=== PATIENT | female | born 1960 | race Caucasian/White ===

== ENCOUNTER 2023-02-18 08:10 | Emergency (ER) | payer SELFPAY ==
[~2023-02-18] VITALS: Ht 170.2 cm; Wt 74.4 kg
[2023-02-18 11:10] LABS: BASO % 0.8 % (0.0-1.0); EOS # 0.1 10^3/uL (0.0-0.5); EOS % 2.5 % (0.0-3.0); HEMATOCRIT 39.7 % (36.0-47.0); HEMOGLOBIN 13.3 g/dl (12.0-15.5); LYMPH % 19.6 % (24.0-44.0); MEAN CORPUSCULAR HEMOGLOBIN 29.1 pg (27.0-33.0); MEAN CORPUSCULAR HGB CONC 33.5 g/dl (32.0-36.5); MEAN CORPUSCULAR VOLUME 86.9 fl (80.0-96.0); MONO # 0.6 10^3/uL (0.0-0.8); MONO % 11.4 % (2.0-8.0); NEUTROPHILS # 3.4 10^3/uL (1.5-8.5); NEUTROPHILS % 65.3 % (36.0-66.0); PLATELET COUNT, AUTOMATED 184 10^3/uL (150-450); RED BLOOD COUNT 4.57 10^6/uL (4.00-5.40); WHITE BLOOD COUNT 5.3 10^3/uL (4.0-10.0)
[2023-02-18 11:23] LABS: INR 1.07; PROTHROMBIN TIME 13.6 SECONDS (12.5-14.5)
[2023-02-18 11:26] LABS: D-DIMER QUANT 0.51 ug/mL (<0.5)
[2023-02-18 11:38] LABS: ALBUMIN 3.5 G/DL (3.2-5.2); ALKALINE PHOSPHATASE 85 U/L (46-116); ALT/SGPT 80 U/L (7.0-40); AST/SGOT 43 U/L (<34); BILIRUBIN,DIRECT 0.2 MG/DL (<0.4); BILIRUBIN,TOTAL 0.9 MG/DL (0.3-1.2); BLOOD UREA NITROGEN 25 MG/DL (9-23); CALCIUM LEVEL 9.3 MG/DL (8.3-10.6); CARBON DIOXIDE LEVEL 29 MMOL/L (20-31); CHLORIDE LEVEL 104 MMOL/L (98-107); CK-MB VALUE MASS < 1.0 NG/ML (<3.6); CREATININE FOR GFR 0.87 MG/DL (0.55-1.30); GLOMERULAR FILTRATION RATE > 60.0 (>45); GLUCOSE, FASTING 92 MG/DL (74-106); POTASSIUM SERUM 4.2 MMOL/L (3.5-5.1); SODIUM LEVEL 139 MMOL/L (136-145); TOTAL PROTEIN 6.4 G/DL (5.7-8.2)
[2023-02-18 11:39] LABS: CPK CREATINE PHOSPHOKINASE 69 U/L (34-145); MB/CK RELATIVE INDEX 1.44 (< OR =4)
[2023-02-18] MEDS ORDERED: ISOVUE-370 76% 100ML VIAL As Ordered ONE (11:45)
[2023-02-18 13:35] VITALS: BP 104/63; TEMP 98.3; O2SAT 95
== END 2023-02-18 13:49 | disposition home or self-care (01) ==
LOC: M ED 08:10
DX: R91.1 Solitary pulmonary nodule (principal); I50.9 Heart failure, unspecified; Z86.711 Personal history of pulmonary embolism; Z86.718 Personal history of other venous thrombosis and embolism; Z95.0 Presence of cardiac pacemaker
CPT/HCPCS: 71046; 71275; 80048; 80076; 82550; 82553; 83880; 84484; 85025; 85379; 85610; 93005; 93041; 94760; 99284; Q9967